=== PATIENT | female | born 1955 ===

== ENCOUNTER 2017-11-10 16:49 | Outpatient (CLI) | payer OTHER ==
[~2017-11-10 16:49] MED LIST: ACTICAL SOFTGEL1 CAP; COZAAR50 MG; FERROUS SU324 ( 65 ); FOLIC ACID1 MG; HYDROCHLOROTHIA25 MG; SERTRALINE HCL100 MG; SULINDAC200 MG; VITAMIN D1000 UNIT
== END 2017-11-10 17:51 | disposition home or self-care (01) ==
LOC: RAD 16:49
DX: M12.88 Other specific arthropathies, not elsewhere classified, other specified site (principal); M47.899 Other spondylosis, site unspecified; M46.47 Discitis, unspecified, lumbosacral region

== ENCOUNTER 2018-04-06 08:11 | Outpatient (CLI) | payer OTHER | END 2018-04-06 09:36 | disposition home or self-care (01) | LOC: LAB 08:11 | DX: M51.36 Other intervertebral disc degeneration, lumbar region (principal); Z01.812 Encounter for preprocedural laboratory examination ==

== ENCOUNTER 2018-04-06 09:34 | Outpatient (CLI) | payer OTHER | END 2018-04-06 09:40 | disposition home or self-care (01) | LOC: MRI 09:34 | DX: M51.36 Other intervertebral disc degeneration, lumbar region (principal) | CPT/HCPCS: 72148 ==

== ENCOUNTER → 2020-08-17 13:40 | Outpatient (CLI) | payer OTHER | END | disposition home or self-care (01) | LOC: NUCLEAR 08-13 14:00 | PROVIDERS: ATTEND Obstetrics & Gynecology | DX: M81.0 Age-related osteoporosis without current pathological fracture (principal) ==